=== PATIENT | male | born 1980 | race Asian ===

== ENCOUNTER 2023-01-15 11:54 | Emergency (ER) | payer OTHER, SELFPAY ==
[2023-01-15 12:02] VITALS: BP 135/69; PULSE 79; RESP 18; TEMP 36.6; O2SAT 99; BMI 33.7
--- NOTE | 2023-01-15 12:13 | ED.BACK ---
HPI - Back Pain/Injury <Kadeem Leno PA-C - Last Filed: 01/15/23 12:48> General Chief Complaint: Back Pain/Injury Stated Complaint: back pain down R leg, numbness t-30 Time Seen by Provider: 01/15/23 12:10 History of Present Illness HPI Narrative: 42-year-old male with chronic lower back pain presents to the ED with 1 month of back pain exacerbation. Patient endorses right-sided lower back pain with pain radiating down the back of his right leg up to the knee. Patient denies numbness, tingling, weakness, urinary hesitancy, saddle paresthesias, urinary incontinence, bowel incontinence. Patient states that he saw a chiropractor 2 weeks ago, who recommended some stretches for pain relief. Patient states that the stretches seem to help him momentarily, however the pain returns. Patient was seen at the [place] ED last week and was prescribed narcotics and muscle relaxants. Patient states that he had minimal relief with those. Related Data Allergies Allergy/AdvReac Type Severity Reaction Status Date / Time No Known Drug Allergies Allergy Verified 01/15/23 12:02 Review of Systems <Kadeem Leon PA-C - Last Filed: 01/15/23 12:48> Review of Systems ROS Unobtainable: All systems reviewed & are unremarkable except as noted in HPI and below Constitutional Constitutional: Denies chills, Denies fatigue, Denies fever(s), Denies frequent falls, Denies lethargy and Denies weakness Eyes Eyes: Denies change in vision, Denies eye discharge, Denies irritation and Denies loss of vision ENT Ears, Nose, Mouth, and Throat: Denies change in voice, Denies dizziness, Denies neck pain, Denies sore throat and Denies throat swelling Cardiovascular Cardiovascular: Denies chest pain, Denies irregular heart rhythm, Denies lightheadedness, Denies palpitations, Denies dyspnea, Denies dyspnea on exertion and Denies orthopnea Respiratory Respiratory: Denies cough, Denies dyspnea, Denies dyspnea on exertion and Denies wheezing Gastrointestinal Gastrointestinal: Denies abdominal pain, Denies change in bowel habits, Denies diarrhea, Denies nausea and Denies vomiting Genitourinary Genitourinary: Denies hematuria, Denies flank pain, Denies urinary incontinence and Denies urinary urgency Musculoskeletal Musculoskeletal: Reports back pain, Denies muscle weakness, Denies neck pain, Denies numbness, Reports radiating pain into limb and Denies tingling Integumentary/Breasts Skin/Breast: Denies pruritus, Denies erythema, Denies rash and Denies wounds Neurologic Neurologic: Denies behavioral changes, Denies confusion, Denies dizziness, Denies frequent falls, Denies loss of vision, Denies numbness, Denies tingling and Denies weakness Psychiatric Psychiatric: Denies anxiety, Denies behavioral changes, Denies confusion, Denies depression, Denies homicidal ideation and Denies suicidal ideation Endocrine Endocrine: Denies fatigue, Denies flushing and Denies palpitations Hematologic/Lymphatic Hematologic/Lymphatic: Denies easy bruising Allergic/Immunologic Allergic/Immunologic: Denies urticaria, Denies throat swelling and Denies wheezing Patient History <Kadeem Leon PA-C - Last Filed: 01/15/23 12:48> Social History Smoking Status: Never smoker Smoking Status: Never smoker Substance Use Type: does not use Exam <Kadeem Leon PA-C - Last Filed: 01/15/23 12:48> Narrative Exam Narrative: Const General:?cooperative, healthy appearing and comfortable [facility] Head:?normal to inspection Ears:?hearing grossly normal bilaterally Nose:?external nose normal Face and sinus:?normal facial exam and sinuses nontender Mouth:?oral mucosae normal Throat:?posterior oropharynx normal Eyes General:?appearance normal, both eyes and all related structures Neck Neck:?normal visual inspection and no lymphadenopathy noted Resp Effort & Inspection:?normal respiratory effort Auscultation:?clear to auscultation bilaterally Cardio Rate:?regular rate Rhythm:?regular rhythm Musculoskeletal No midline tenderness to palpation. No paraspinal tenderness to palpation. Gait is normal. Strength and sensation is intact. There is full range of motion. Patient is neurovascularly intact. Neuro General:?patient alert, patient awake and patient oriented x3 Initial Vital Signs Initial Vital Signs: Vital Signs Temperature 97.8 F 01/15/23 12:02 Pulse Rate 79 01/15/23 12:02 Respiratory Rate 18 01/15/23 12:02 Blood Pressure 135/69 01/15/23 12:02 Pulse Oximetry 99 01/15/23 12:02 Oxygen Delivery Method Room Air 01/15/23 12:02 <Nii Winston MD - Last Filed: 01/16/23 07:08> Initial Vital Signs Initial Vital Signs: Vital Signs Temperature 97.8 F 01/15/23 12:02 Pulse Rate 79 01/15/23 12:02 Respiratory Rate 18 01/15/23 12:02 Blood Pressure 135/69 01/15/23 12:02 Pulse Oximetry 99 01/15/23 12:02 Oxygen Delivery Method Room Air 01/15/23 12:02 Course <Kadeem Leon PA-C - Last Filed: 01/15/23 12:48> Vital Signs Vital signs: Vital Signs - 8 hr 01/15/23 12:02 Temperature 97.8 F Pulse Rate 79 Respiratory Rate 18 Blood Pressure 135/69 Pulse Oximetry 99 Oxygen Delivery Method Room Air <Nii Winston MD - Last Filed: 01/16/23 07:08> Vital Signs Vital signs: Vital Signs - 8 hr 01/15/23 12:02 Temperature 97.8 F Pulse Rate 79 Respiratory Rate 18 Blood Pressure 135/69 Pulse Oximetry 99 Oxygen Delivery Method Room Air MDM - Back Pain/Injury <Kadeem Leon PA-C - Last Filed: 01/15/23 12:48> MDM Narrative Medical decision making narrative: 42-year-old male with chronic lower back pain presents to the ED with 1 month of back pain exacerbation. Concern for musculoskeletal sprain/strain versus disc issues versus other. Physical exam is reassuring for no midline tenderness to palpation, patient is neuro intact. Recommend supportive measures with Tylenol, ibuprofen, lidocaine patches, heat packs, stretching. Recommend follow-up with primary care provider as soon as possible for further evaluation and referral to PT/ortho. ED return precautions were discussed with patient. Patient verbalized understanding. Discharge Plan Departure Patient Disposition: Home Clinical Impression: Lower back pain Instructions: DI for Back Pain With Sciatica Activity Restrictions/Additional Instructions: You were evaluated in the ED today for lower back pain. Your symptoms could be either due to a musculoskeletal sprain/strain or a disc issue. Please follow-up with your primary care doctor for further evaluation and possible referral to PT/ortho. In the meanwhile, you may manage your symptoms by taking ibuprofen 800 mg 3 times a day, Tylenol 1000 mg 3 times a day, applying lidocaine patches, applying heat packs. You may continue to do the stretches suggested by your chiropractor. Return to the ED if you experience any urinary difficulties, weakness. Referrals: Miscellaneous,[facility] [Primary Care Provider] - Stand Alone Forms: Patient Portal/API <Nii Winston MD - Last Filed: 01/16/23 07:08> Cosign ED Attending Shivature Attestation: I was immediately available in the department for consultation. ?This documentation has been reviewed and I agree with assessment and plan. Supervised by Nii Winston MD
== END 2023-01-15 12:34 | disposition home or self-care (01) ==
PROVIDERS: Emergency Provider Student in an Organized Health Care Education/Training Program; PCP Student in an Organized Health Care Education/Training Program
DX: M54.50 Low back pain, unspecified (principal)
CPT/HCPCS: 99281